=== PATIENT | female | born 1975 | race Caucasian/White ===

== ENCOUNTER 2022-08-14 19:21 | Day surgery (SDC) | payer MEDICARE, BC, SELFPAY ==
[2022-08-14 19:27] VITALS: BP 109/72; PULSE 76; RESP 16; TEMP 36.5; O2SAT 99; BMI 19.2
--- NOTE | 2022-08-14 19:48 | CRLHL7_ITS ---
For Patients: As a result of the Century Cures Act, medical imaging exams and procedure reports are released immediately into your electronic medical record. You may view this report before your referring provider. If you have questions, please contact your health care provider. INDICATION: Right lower abdomen pain, vomiting for 1 week. History of tubal ligation, , uterine ablation. TECHNIQUE: CT of the abdomen and pelvis with 52 cc Isovue 370 IV contrast. Coronal and sagittal reconstructions. COMPARISON: None. FINDINGS: The liver, spleen, pancreas, and adrenal glands are negative. The gallbladder is distended and contains sludge and multiple large stones, including a stone in the gallbladder neck. The gallbladder wall is markedly thickened/edematous with pericholecystic edema. Findings are suspicious for acute cholecystitis. No significant biliary dilation. Hepatic and portal veins are patent. Symmetric enhancement of the kidneys. No hydronephrosis or ureteral dilation. No obstructing urinary calculi identified. The bladder and uterus are normal in appearance. There are prominent periuterine vessels which can be seen in the setting of pelvic congestion syndrome. No adnexal mass. No small bowel dilation. Mild to moderate amount of stool throughout the colon. Negative appendix. Trace free fluid in the pelvis. No intraperitoneal free air. No lymphadenopathy. Aortoiliac vascular calcifications. Tiny fat containing umbilical hernia. The bones are unremarkable. The lung bases are clear. IMPRESSION: 1. Distended gallbladder with cholelithiasis and marked gallbladder wall thickening/edema. Findings are suspicious for acute cholecystitis. 2. Prominent periuterine vessels which can be seen in the setting of pelvic congestion syndrome. 3. No evidence of bowel obstruction. The appendix is negative. Please note that all CT scans at this facility use dose modulation, iterative reconstruction, and/or weight-based dosing when appropriate to reduce radiation dose to as low as reasonably achievable. Dictated by Waleska Melara MD @ 08/14/2022 9:17:03 PM (Electronically Signed)
--- NOTE | 2022-08-14 19:52 | ED.GENADULT ---
HPI - General Adult General Chief complaint: Abdominal Pain Stated complaint: Abdominal Pain Time Seen by Provider: 08/14/22 19:28 Source: patient Mode of arrival: ambulatory Limitations: no limitations History of Present Illness HPI narrative: 47-year-old female coming in today complaining of right lower abdominal pain going on for about a week. Started off of nausea and vomiting as well and then it got better for a few days and then 2 days ago started coming back in today is the worst that it has been. She feels very nauseated. The car ride was very painful for her. She has had a decreased appetite. She did eat at 2:00 p.m. today and did not vomit. She denies fevers but she feels hot and cold throughout the day and complains of chills. Nothing seems to make the pain better or worse. Pain is located in the right lower quadrant does not radiate. She states that she has had daily bowel movements. Denies any urinary symptoms including frequency, urgency or dysuria. Past medical history significant for vitamin-D and vitamin B12 deficiencies, sneddon disease, tobacco use disorder. Patient does smoke half pack cigarettes per day. Denies alcohol or other drug use. Past surgical history includes a uterine ablation, tubal ligation, x1 and tympanostomy tubes x2. Related Data Home Medications Medication Instructions Recorded Confirmed Vitamin D3 08/14/22 Allergies Allergy/AdvReac Type Severity Reaction Status Date / Time bees Allergy Severe Uncoded 08/14/22 19:56 Review of Systems Status of ROS: Reports: 10 or more systems reviewed and unremarkable except as noted in History and below [facility] Social History Smoking Status: Current every day smoker What tobacco products do you use: cigarettes Smoking packs per day: 0.5 Smoking cigarettes per day: 10.0 How often do you have a drink containing alcohol: never AUDIT-C Alcohol total score: 0 Non-prescribed substance use: denies use service: No Exam Narrative: Exam Narrative: Well-nourished well-developed patient in no acute distress. Alert and oriented. Answers questions appropriately. Mood and affect are appropriate. Thoughts are goal oriented and rational. No tangential or magical thinking noted. Patient speaks in full sentences without needing to catch her breath. Smells of cigarette smoke. HEENT: Normocephalic atraumatic. Pupils are equally round reactive to light. Extraocular muscles are intact. Conjunctivae are moist without any icterus noted. Moist mucous membranes. Posterior pharynx is normal. Neck is soft without any lymphadenopathy or thyromegaly. No masses are appreciated. Cardiovascular: Heart is regular rate and rhythm S1 and S2 are present without any murmurs. Lungs: Clear to auscultation bilaterally no wheezes rhonchi or rales are appreciated. Patient takes deep breaths without any discomfort. Abdomen: Soft and nondistended with normal bowel sounds. She does have right lower quadrant pain right at McBurney's point. She does have rebound tenderness. She also has a positive Sánchez's sign. Extremities: Bilateral lower extremities are without edema. Normal DP and PT pulses. Skin: Well perfused without any obvious rashes. Const: Vital Signs, click to edit/add: Vital Signs - 24 hr 08/14/22 19:27 Temperature 97.7 F Pulse Rate [Right Pulse Oximeter] 76 Respiratory Rate 16 Blood Pressure [Ri ght Upper Arm] 109/72 Pulse Oximetry 99 Oxygen Delivery Me thod Room Air Course Course Hospital Course: Differential diagnosis at this time includes appendicitis, colitis, abdominal wall pain, constipation, cholelithiasis or cholecystitis, ovarian cyst, ovarian torsion. IV was established and labs were drawn. She does not have an elevated white cell count, LFTs are normal. CRP is elevated. Abdominal CT showing gallbladder wall thickening with cholelithiasis, suspicious for cholecystitis. I did consult with Dr. Cruz, surgeon on-call, who recommends admission, IV antibiotics and cholecystectomy in the morning. Vital Signs Vital signs: Initial Vital Signs Temperature 97.7 F 08/14/22 19:27 Temperature Source Temporal Artery Scan 08/14/22 19:27 Pulse Rate 76 08/14/22 19:27 Pulse Rhythm Regular 08/14/22 19:27 Respiratory Rate 16 08/14/22 19:27 Blood Pressure 109/72 08/14/22 19:27 Blood Pressure Mean 84 08/14/22 19:27 Blood Pressure Position Sitting 08/14/22 19:27 Pulse Oximetry 99 08/14/22 19:27 Oxygen Delivery Method Room Air 08/14/22 19:27 Vital Signs Temperature 97.7 F 08/14/22 19:27 Pulse Rate 76 08/14/22 19:27 Respiratory Rate 16 08/14/22 19:27 Blood Pressure 109/72 08/14/22 19:27 Pulse Oximetry 99 08/14/22 19:27 Oxygen Delivery Method Room Air 08/14/22 19:27 Temperature 97.7 F 08/14/22 19:27 Pulse Rate 76 08/14/22 19:27 Respiratory Rate 16 08/14/22 19:27 Blood Pressure 109/72 08/14/22 19:27 Pulse Oximetry 99 08/14/22 19:27 Oxygen Delivery Method Room Air 08/14/22 19:27 Medical Decision Making MDM Narrative Medical decision making narrative: 47-year-old female with cholecystitis. Plan per above. Lab Data Lab results reviewed: Yes I reviewed the patient's lab results Labs: Lab Results 08/14/22 Range/Units 20:02 WBC 8.37 (4.50-11.00) K/uL RBC 3.69 L (4.00-5.20) m/uL Hgb 12.2 (12.0-16.0) gm/dL Hct 35.6 (33.0-51.0) % MCV 97 (80-100) fL MCH 33 (26-34) pg MCHC 34 (32-36) gm/dL RDW Coeff of David 13.4 (11.5-15.5) % Plt Count 227 (140-440) K/uL Neut % (Auto) 65.5 (42.0-72.0) % Lymph % (Auto) 25.9 (20-44) % Gilliam % (Auto) 5.9 (0.0-11.0) % Eos % (Auto) 2.4 (0.0-7.0) % Baso % (Auto) 0.2 (0.0-3.0) % Neut # (Auto) 5.48 (1.7-7.0) K/uL Lymph # (Auto) 2.17 (0.90-2.90) K/uL Gilliam # (Auto) 0.50 (0.00-0.90) K/UL Eos # (Auto) 0.20 (0.00-0.50) K/uL Baso # (Auto) 0.02 (0.00-0.30) K/uL Sodium 138 (135-149) mmol/L Potassium 3.5 L (3.6-5.1) mmol/L Chloride 102 (96-114) mmol/L Carbon Dioxide 28 (20-32) mmol/L BUN 8 (5-24) mg/dL Creatinine 0.7 (0.5-1.5) mg/dL Estimated Creat Clear 74.70 Estimated GFR 107 ml/min Glucose 86 (60-115) mg/dL Lactate 0.9 (0.5-1.9) mmol/L Calcium 9.2 (8.4-10.6) mg/dL Total Bilirubin 0.3 (0.1-1.5) mg/dL Direct Bilirubin 0.0 (0.0-0.5) mg/dL AST 16 (12-35) U/L ALT 12 (4-35) U/L Alkaline Phosphatase 48 (40-150) U/L C-Reactive Protein 3.6 H (0.5-1.0) mg/dL Total Protein 6.6 (6.0-8.3) g/dL Albumin 4.0 (3.3-5.0) g/dL Lipase 56 (23-300) U/L Urine Color Yellow (Yellow) Urine Appearance Clear (Clear) Urine pH 7.0 (5.0-8.5) Ur Specific [place] 1.010 (1.000-1.030) Urine Protein Negative (Negative) Urine Glucose (UA) Negative (Negative) Urine Ketones Negative (Negative) Urine Blood Trace-intact A (Negative) Urine Nitrite Negative (Negative) Urine Bilirubin Negative (Negative) Urine Urobilinogen 0.2 (0.2-1.0) Ur Leukocyte Esterase Negative (Negative) Urine RBC 2-5 A (0-2) Urine WBC 0-2 (0-5) Ur Squamous Epith Cells Many A (None-Few) Urine Bacteria None (None) Imaging Data CT scan - abdomen: Attestation: I have reviewed the pertinent imaging results. Radiologist's impression: CT of the abdomen and pelvis with 52 cc Isovue 370 IV contrast. Coronal and sagittal reconstructions. COMPARISON: None. FINDINGS: The liver, spleen, pancreas, and adrenal glands are negative. The gallbladder is distended and contains sludge and multiple large stones, including a stone in the gallbladder neck. The gallbladder wall is markedly thickened/edematous with pericholecystic edema. Findings are suspicious for acute cholecystitis. No significant biliary dilation. Hepatic and portal veins are patent. Symmetric enhancement of the kidneys. No hydronephrosis or ureteral dilation. No obstructing urinary calculi identified. The bladder and uterus are normal in appearance. There are prominent periuterine vessels which can be seen in the setting of pelvic congestion syndrome. No adnexal mass. No small bowel dilation. Mild to moderate amount of stool throughout the colon. Negative appendix. Trace free fluid in the pelvis. No intraperitoneal free air. No lymphadenopathy. Aortoiliac vascular calcifications. Tiny fat containing umbilical hernia. The bones are unremarkable. The lung bases are clear. IMPRESSION: 1. Distended gallbladder with cholelithiasis and marked gallbladder wall thickening/edema. Findings are suspicious for acute cholecystitis. 2. Prominent periuterine vessels which can be seen in the setting of pelvic congestion syndrome. 3. No evidence of bowel obstruction. The appendix is negative. Discharge Plan Discharge Clinical Impression: Acute cholecystitis, Cholelithiasis Patient Disposition: Admitted As Inpatient Condition: Stable
[2022-08-14 20:09] LABS: Lactate* 0.9 mmol/L (0.5-1.9)
[2022-08-14 20:12] LABS: Basophils Absolute Auto 0.02 K/uL (0.00-0.30); Basophils Percent Auto 0.2 % (0.0-3.0); Eosinophils Percent Auto 2.4 % (0.0-7.0); Hematocrit 35.6 % (33.0-51.0); Hemoglobin* 12.2 gm/dL (12.0-16.0); Immature Granulocytes Abs Auto 0.01 K/uL (0.00-0.30); Immature Granulocytes Pct Auto 0.1 %; Lymphocytes Absolute Auto 2.17 K/uL (0.90-2.90); Lymphocytes Percent Auto 25.9 % (20-44); Mean Corpuscular HGB Conc 34 gm/dL (32-36); Mean Corpuscular Hemoglobin 33 pg (26-34); Mean Corpuscular Volume 97 fL (80-100); Monocytes Percent Auto 5.9 % (0.0-11.0); Neutrophils Absolute Auto 5.48 K/uL (1.7-7.0); Neutrophils Percent Auto 65.5 % (42.0-72.0); Platelet Count* 227 K/uL (140-440); RDW Coefficient of Variation % 13.4 % (11.5-15.5); Red Blood Count 3.69 m/uL (4.00-5.20); White Blood Count* 8.37 K/uL (4.50-11.00)
[2022-08-14 20:15] LABS: Appearance Urine Clear (Clear); Bilirubin Urine Negative (Negative); Blood Urine Trace-intact (Negative); Color Urine Yellow (Yellow); Glucose Urine Negative (Negative); Ketones Urine Negative (Negative); Leukocyte Esterase Urine Negative (Negative); Nitrite Urine Negative (Negative); Protein Urine Negative (Negative); Urobilinogen Urine 0.2 (0.2-1.0)
[2022-08-14 20:20] LABS: Slide Review Reflex No
[2022-08-14 20:27] LABS: Chloride* 102 mmol/L (96-114); Sodium* 138 mmol/L (135-149)
[2022-08-14 20:28] LABS: Potassium* 3.5 mmol/L (3.6-5.1)
[2022-08-14 20:30] LABS: Carbon Dioxide* 28 mmol/L (20-32); Creatinine* 0.7 mg/dL (0.5-1.5); Estimated Glomerular Filt Rate 107 ml/min
[2022-08-14 20:31] LABS: Alanine Aminotransferase* 12 U/L (4-35); Alkaline Phosphatase* 48 U/L (40-150); Aspartate Amino Transferase* 16 U/L (12-35); Bilirubin Total* 0.3 mg/dL (0.1-1.5); Blood Urea Nitrogen* 8 mg/dL (5-24); Calcium* 9.2 mg/dL (8.4-10.6); Glucose* 86 mg/dL (60-115); Lipase* 56 U/L (23-300); Total Protein* 6.6 g/dL (6.0-8.3)
[2022-08-14 20:34] LABS: C Reactive Protein* 3.6 mg/dL (0.5-1.0); Squamous Epithelial Cell Urine Many (None-Few); WBC Urine 0-2 (0-5)
[2022-08-14] MEDS: PIPERACILLIN/TAZOBACTAM 3.375 GM in 0.9 % SODIUM CHLORIDE Mini-bag 100 ML IVPB (21:48)
--- NOTE | 2022-08-14 21:55 | P.IMHP_ITS ---
Hospitalist- H&P: HPI History of Present Illness Date Seen: 08/14/22 Chief complaint: Abdominal Pain Narrative: Adrianne Mendez is a 47 year old female who prsented to the ED this evening for 5-7 days of R sided abdominal pain and decreased appetite. Associated symptoms include vomiting on day 1 of symptoms (thought this was food poisoning after eating [employer]), no further vomiting or diarrhea. + nausea, intermittent subjective fevers and chills. Symptoms seem worse after eating. ER Course and Findings: - potassium 3.5, rest of labs wnl - reassuring VS - acute cholecystitis on CT - General Surgery consulted: recommend admission, IV Zosyn, plan for morning cholecystectomy Patient is active without chest pain or dyspnea. METs >4. Has had previous surgery without anesthetic or surgical complication. Patient's medical history updated below; PCP is Dr. Vimal Parr in [place]. Only Rx is Vitamin D supplementation. She also follows with Rheumatology at [facility]. Review of Systems Status of ROS: Reports: 10 or more systems reviewed and unremarkable except as noted in History and below [facility] Medical History (Updated 08/14/22 @ 23:54 by Allison Palmer MD) Raynaud disease ?I73.00 - Raynaud's syndrome without gangrene (ICD-10) Sneddon syndrome ?I77.89 - Other specified disorders of arteries and arterioles (ICD-10) Surgical History (Updated 08/14/22 @ 22:04 by Allison Palmer MD) H/O tubal ligation ?Z98.51 - Tubal ligation status (ICD-10) Previous section ?Z98.891 - History of uterine scar from previous surgery (ICD-10) Social History (Updated 08/14/22 @ 23:52 by Allison Palmer MD) Narrative: Lives with partner in [place], spends part of her winter in [place]. 3 daughters (Nahed would be MDM if needed). Smokes 1/2ppd, no ETOH. Full Code. Smoking Status: Current every day smoker What tobacco products do you use: cigarettes Smoking packs per day: 0.5 Smoking cigarettes per day: 10.0 How often do you have a drink containing alcohol: never AUDIT-C Alcohol total score: 0 Non-prescribed substance use: denies use service: No Meds Home Medications and Allergies Home Medications Medication Instructions Recorded Confirmed Type Vitamin D3 08/14/22 History Home Medication Comments: No Rx medications Allergies Allergy/AdvReac Type Severity Reaction Status Date / Time bees Allergy Severe Uncoded 08/14/22 19:56 Exam Narrative: Exam Narrative: GEN: Alert and oriented, nontoxic HEENT: EOMIs bilaterally, no scleral icterus CV: RRR, No concerning murmurs, rubs, or gallops R: LCTA bilaterally without concerning wheezing, rales, or rhonchi Ab: + ttp RUQ and RLQ, mild guarding, no rebound Ext: wwp, no concerning edema Skin: No concerning skin lesions or rashes on exposed skin Neuro: Nonfocal Psych: Appropriate Const: Vital Signs, click to edit/add: Vital Signs - 24 hr 08/14/22 19:27 Temperature 97.7 F Pulse Rate [Right Pulse Oximeter] 76 Respiratory Rate 16 Blood Pressure [Ri ght Upper Arm] 109/72 Pulse Oximetry 99 Oxygen Delivery Me thod Room Air Hospitalist - H&P: Result Labs Labs: Short CBC 08/14/22 Range/Units 20:02 WBC 8.37 (4.50-11.00) K/uL Hgb 12.2 (12.0-16.0) gm/dL Hct 35.6 (33.0-51.0) % Plt Count 227 (140-440) K/uL BMP 08/14/22 20:02 Sodium 138 Potassium 3.5 L Chloride 102 Carbon Dioxide 28 BUN 8 Creatinine 0.7 Glucose 86 Calcium 9.2 Liver Function 08/14/22 Range/Units 20:02 Total Bilirubin 0.3 (0.1-1.5) mg/dL Direct Bilirubin 0.0 (0.0-0.5) mg/dL AST 16 (12-35) U/L ALT 12 (4-35) U/L Alkaline Phosphatase 48 (40-150) U/L Albumin 4.0 (3.3-5.0) g/dL Urine 08/14/22 Range/Units 20:02 Urine Color Yellow (Yellow) Urine Appearance Clear (Clear) Urine pH 7.0 (5.0-8.5) Ur Specific [place] 1.010 (1.000-1.030) Urine Protein Negative (Negative) Urine Glucose (UA) Negative (Negative) Assessment and Plan Assessment and plan (1) Acute cholecystitis: Problem comment: - Dr. Cruz of General Surgery aware Status: Acute Plan - NPO - Zosyn - plan for cholecystectomy in the morning
[2022-08-14 22:45] VITALS: BP 111/45; PULSE 77; RESP 16; TEMP 36.9; O2SAT 97
[2022-08-15] VITALS (25 sets, daily range): BP systolic 95–146; BP diastolic 43–90; PULSE 57–91; RESP 9–22; TEMP 36.2–36.7; O2SAT 94–100
[2022-08-15] MEDS: PIPERACILLIN/TAZOBACTAM 3.375 GM in 0.9 % SODIUM CHLORIDE Mini-bag 100 ML IVPB ×2 (03:49→09:49)
[2022-08-15] MEDS: SODIUM CHLORIDE 0.9 % (FLUSH) 10 ML SYRINGE 5 ML IVF (03:51)
[2022-08-15] MEDS: 0.9 % SODIUM CHLORIDE 250 ml IV (04:35)
[2022-08-15] MEDS: LACTATED RINGERS 1000 ML 1,000 ML 125 ML IV ×3 (04:35→23:45)
--- NOTE | 2022-08-15 11:01 | P.GSCN_ITS ---
History of Present Illness Consult details Date Seen: 08/15/22 Consult date: 08/15/22 Narrative: The patient is a 47-year-old female who presented to the emergency department last evening with severe right-sided abdominal pain. She states that she really has had abdominal pain for months which has been stretching across her upper abdomen. She thought that it was related to diverticulitis or eating red sauce however last week she developed severe pain. She thought that she had food poisoning and had a very large bilious emesis. She then had several days of nausea and yesterday developed severe right-sided pain. She has been able to eat and drink however she states eating and drinking makes her pain significantly worse. She states that she has had fevers. She has been having bowel movements. She had 1 yesterday which was loose. [facility] Medical History (Updated 08/14/22 @ 23:54 by Allison Palmer MD) Raynaud disease ?I73.00 - Raynaud's syndrome without gangrene (ICD-10) Sneddon syndrome ?I77.89 - Other specified disorders of arteries and arterioles (ICD-10) Surgical History (Updated 08/14/22 @ 22:04 by Allison Palmer MD) H/O tubal ligation ?Z98.51 - Tubal ligation status (ICD-10) Previous section ?Z98.891 - History of uterine scar from previous surgery (ICD-10) Social History (Updated 08/14/22 @ 23:52 by Allison Palmer MD) Narrative: Lives with partner in [facility], spends part of her winter in [place]. 3 daughters (Nahed would be MDM if needed). Smokes 1/2ppd, no ETOH. Full Code. Smoking Status: Current every day smoker What tobacco products do you use: radha osorioettes Smoking packs per day: 0.5 Smoking cigarettes per day: 10.0 How often do you have a drink containing alcohol: never AUDIT-C Alcohol total score: 0 Non-prescribed substance use: denies use service: No Meds Home Medications and Allergies Home Medications Medication Instructions Recorded Confirmed Type cyanocobalamin (vitamin B-12) 1,000 mcg PO DAILY 08/14/22 08/14/22 History 1,000 mcg tablet,extended release ergocalciferol (vitamin D2) 1,250 1,250 mcg PO .twice/week 08/14/22 08/14/22 History mcg (50,000 unit) capsule (Vitamin D2) Allergies Allergy/AdvReac Type Severity Reaction Status Date / Time bees Allergy Severe Uncoded 08/14/22 19:56 Exam Narrative: Exam Narrative: General appearance: Alert, cooperative, and in no distress Eyes: PERRLA, eye lids clear, and sclera white HENT Head: Normocephalic Ears: External ears normal Pulmonary: Breathing nonlabored on room air Cardiovascular Heart: Regular rate Extremities: warm and well perfused Gastrointestinal Abdominal: : Soft. Nondistended. She is tender on the right side and the right upper quadrant. Extremities: Upper: Both upper extremities have normal joint range of motion and intact strength. Lower: Both lower extremities have normal joint range of motion and intact strength. Skin: Normal skin color, texture, and turgor. Neurologic: No focal deficits Psychiatric: Alert, oriented, cooperative, normal affect. Const: Vital Signs, click to edit/add: Vital Signs - 24 hr 08/14/22 19:27 08/14/22 22:45 08/15/22 00:25 Temperature 97.7 F 98.4 F 98.1 F Pulse Rate 77 70 Pulse Rate [Pulse Oximeter] Pulse Rate [Right Pulse Oximeter] 76 Respiratory Rate 16 16 22 Blood Pressure 111/45 L 95/52 L Blood Pressure [Le ft Arm] Blood Pressure [Ri ght Upper Arm] 109/72 Pulse Oximetry 99 97 97 Oxygen Delivery Me thod Room Air Room Air Room Air 08/15/22 00:30 08/15/22 03:00 Temperature 98.1 F 98 F Pulse Rate 61 Pulse Rate [Pulse Oximeter] 70 Pulse Rate [Right Pulse Oximeter] Respiratory Rate 22 18 Blood Pressure 102/53 L Blood Pressure [Le ft Arm] 95/52 L Blood Pressure [Ri ght Upper Arm] Pulse Oximetry 97 98 Oxygen Delivery Me thod Room Air Room Air Results Labs Labs: Abnormal lab results 08/14/22 Range/Units 20:02 RBC 3.69 L (4.00-5.20) m/uL Potassium 3.5 L (3.6-5.1) mmol/L C-Reactive Protein 3.6 H (0.5-1.0) mg/dL Urine Blood Trace-intact A (Negative) Urine RBC 2-5 A (0-2) Ur Squamous Epith Cells Many A (None-Few) Diabetes panel 08/14/22 Range/Units 20:02 Sodium 138 (135-149) mmol/L Potassium 3.5 L (3.6-5.1) mmol/L Chloride 102 (96-114) mmol/L Carbon Dioxide 28 (20-32) mmol/L BUN 8 (5-24) mg/dL Creatinine 0.7 (0.5-1.5) mg/dL Glucose 86 (60-115) mg/dL Calcium 9.2 (8.4-10.6) mg/dL AST 16 (12-35) U/L ALT 12 (4-35) U/L Alkaline Phosphatase 48 (40-150) U/L Total Protein 6.6 (6.0-8.3) g/dL Albumin 4.0 (3.3-5.0) g/dL Calcium panel 08/14/22 Range/Units 20:02 Calcium 9.2 (8.4-10.6) mg/dL Albumin 4.0 (3.3-5.0) g/dL Pituitary panel 08/14/22 Range/Units 20:02 Sodium 138 (135-149) mmol/L Potassium 3.5 L (3.6-5.1) mmol/L Chloride 102 (96-114) mmol/L Carbon Dioxide 28 (20-32) mmol/L BUN 8 (5-24) mg/dL Creatinine 0.7 (0.5-1.5) mg/dL Glucose 86 (60-115) mg/dL Calcium 9.2 (8.4-10.6) mg/dL Adrenal panel 08/14/22 Range/Units 20:02 Sodium 138 (135-149) mmol/L Potassium 3.5 L (3.6-5.1) mmol/L Chloride 102 (96-114) mmol/L Carbon Dioxide 28 (20-32) mmol/L BUN 8 (5-24) mg/dL Creatinine 0.7 (0.5-1.5) mg/dL Glucose 86 (60-115) mg/dL Calcium 9.2 (8.4-10.6) mg/dL Total Bilirubin 0.3 (0.1-1.5) mg/dL AST 16 (12-35) U/L ALT 12 (4-35) U/L Alkaline Phosphatase 48 (40-150) U/L Total Protein 6.6 (6.0-8.3) g/dL Albumin 4.0 (3.3-5.0) g/dL All other labs normal. Imaging Abdomen CT scan report/results: report reviewed and image reviewed Additional studies: INDICATION: Right lower abdomen pain, vomiting for 1 week. History of tubal ligation, , uterine ablation. TECHNIQUE: CT of the abdomen and pelvis with 52 cc Isovue 370 IV contrast. Coronal and sagittal reconstructions. COMPARISON: None. FINDINGS: The liver, spleen, pancreas, and adrenal glands are negative. The gallbladder is distended and contains sludge and multiple large stones, including a stone in the gallbladder neck. The gallbladder wall is markedly thickened/edematous with pericholecystic edema. Findings are suspicious for acute cholecystitis. No significant biliary dilation. Hepatic and portal veins are patent. Symmetric enhancement of the kidneys. No hydronephrosis or ureteral dilation. No obstructing urinary calculi identified. The bladder and uterus are normal in appearance. There are prominent periuterine vessels which can be seen in the setting of pelvic congestion syndrome. No adnexal mass. No small bowel dilation. Mild to moderate amount of stool throughout the colon. Negative appendix. Trace free fluid in the pelvis. No intraperitoneal free air. No lymphadenopathy. Aortoiliac vascular calcifications. Tiny fat containing umbilical hernia. The bones are unremarkable. The lung bases are clear. IMPRESSION: 1. Distended gallbladder with cholelithiasis and marked gallbladder wall thickening/edema. Findings are suspicious for acute cholecystitis. 2. Prominent periuterine vessels which can be seen in the setting of pelvic congestion syndrome. 3. No evidence of bowel obstruction. The appendix is negative. Please note that all CT scans at this facility use dose modulation, iterative reconstruction, and/or weight-based dosing when appropriate to reduce radiation dose to as low as reasonably achievable. Assessment and Plan Assessment and plan (1) Acute cholecystitis: Problem comment: - Dr. Cruz of General Surgery aware Status: Acute (2) Cholelithiasis: Status: Acute Plan The patient is a 47-year-old female with acute cholecystitis. I explained that the treatment for this is laparoscopic cholecystectomy. We discussed the procedure as well as risks and benefits of surgery which include bleeding, infection, bile leak, conversion to open or injury to other structures, specifically the common bile duct. We also discussed recovery.
--- NOTE | 2022-08-15 13:43 | W.ANESCHARGE ---
Anesthesia Charges Start Date/Time Anesthesia Start Date: 08/15/22 Anesthesia Start Time: 10:53 Stop Date/Time Anesthesia Stop Date: 08/15/22 Anesthesia Stop Time: 15:22
[2022-08-15] MEDS: BUPIVACAINE 0.25% 30 ML INJECTION (14:41)
--- NOTE | 2022-08-15 14:59 | PM.GSPRC ---
Operative Note Date of procedure: 08/15/22 Pre-op diagnosis: Acute cholecystitis Post-op diagnosis: Same Type of Procedure: Laparoscopic cholecystectomy Indications: The patient is a 47-year-old female who presented to the emergency department with 1 week of severe abdominal pain. Workup revealed normal liver tests however she had a CT scan with a markedly distended and edematous gallbladder full of stones. I recommended cholecystectomy and she agreed to proceed. Procedure Description: After discussing the risks and benefits of the procedure, the patient signed informed consent.? The operative site was marked and the patient was brought to the operating room and placed on the operating table in supine position.? Care was taken to pad the patient's pressure points.?? The patient was then intubated by anesthesia.?? The operative site was then prepped and draped in the usual sterile fashion.? A time-out was then performed. Entrance to the abdomen was attempted via a 5 mm Visiport in the left upper quadrant, however, on the 1st attempt, the 2nd muscle layer did not appear normal and the port was removed. I attempted a 2nd time and it appeared as though I was in the abdomen appropriately. I insufflated, however the port pulled back. Rather than try again, I elected to enter the abdomen via open Sanchez technique. I made an incision below the umbilicus an using a scissor incised the fascia. The peritoneal cavity was entered. A 10 mm port was placed. The abdomen was then insufflated. I surveyed the right upper quadrant. There was 1 fascial opening were I had entered previously. There was a less than 1 cm laceration on the anterior aspect of the left lobe of the liver this was not bleeding. This did not go through and through. There was no injury to the stomach underneath or inferior to the liver. There was minimal blood in the quadrant however I noted a very small amount of blood staining on the omentum below the stomach. I attempted to lift this up and look underneath at the colon, however the omentum was tethered to the anterior abdominal wall in the left mid abdomen. To adequately exam the colon underneath of the omentum, I used LigaSure to take down the omental attachments to the anterior abdominal wall. Once a small section had been freed, I was able to see the colon which appeared to be free of any injury. The patient was then placed into reverse Trendelenburg with the right-side up and 2 working ports along the right costal margin were placed under direct vision. The gallbladder was extremely large and edematous. Of the fundus was grasped and retracted cephalad. The infundibulum was grasped. A combination of hook cautery and blunt dissection was used to begin dissection of the cystic duct and artery. The patient's gallbladder was very inflamed and bled easily throughout the dissection. Because of the inflammation, the tissue planes were difficult to dissect. I was able to identify the artery on the gallbladder itself, however had difficulty dissecting it in the area of the cystic duct below the infundibulum as it appeared as though there was 1 or 2 large lymph nodes which were densely adherent to the gallbladder and bled easily with manipulation, making dissection below this difficult. Using a combination of a [place] dissector, suction biodiesel process control technician and hook cautery, I was able to dissect out anteriorly what appeared to be cystic duct and likely also the artery, however dissection behind them difficult again because the tissue was so inflamed. I decided to dissect the gallbladder off the cystic plate somewhat higher up and though this was also difficult because of the inflammation, I was able to safely dissect across the gallbladder on the gallbladder bed and take this dissection down carefully to lares the duct and artery and then was able to safely dissect both structures out. There were no other intervening structures. Once the critical view was achieved, the cystic duct and artery were each clipped with 2 clips proximally and 1 clip distally and transected with the scissors. The gallbladder was then taken off of the liver bed and removed from the abdomen using an Endo-Catch bag. The port site fascia had to be widened to permit the passage of the very enlarged gallbladder. The gallbladder bed was surveyed for hemostasis which appeared adequate. The small liver laceration was again examined. This was completely hemostatic. The ports were removed and the abdomen desufflated. The umbilical port fascia was closed with running 0 Vicryl. The remaining ports were then removed and the abdomen desufflated. The skin was closed with absorbable subcuticular suture. Instrument sponge and needle counts were correct at the end of the case. The patient was then woken and transferred to the PACU in stable condition. The patient tolerated the procedure well. Findings: 1. Markedly enlarged and inflamed gallbladder with cholelithiasis 2. Small liver laceration created upon entrance to the abdomen. Hemostatic. Anesthesia: GETA Surgeon: Hayley Cruz MD Estimated blood loss (mL): 150 Specimen: Gallbladder Condition: stable Disposition: PACU
--- NOTE | 2022-08-15 16:10 | PC.NURSE ---
Patient refused further medication once in PACU. Print out of VS passed off to acoustic engineer.
[2022-08-15] MEDS: HYDROCODONE-ACETAMIN 5-325 MG 1 TAB PO (17:32)
--- NOTE | 2022-08-15 20:19 | PC.NURSE ---
Nursing Care Hours: [id number] Pt this shift educated on surgery and post op instructions prior to surgery. C/o pain 5/10 but refused any medications for it. States concern about constipation. Pt educated on constipation prevention strategies, but pt continue to decline pain meds. Preop checklist completed and pt left for OR at 1050. Returned from PACU at 1605, sedated and lethargic. VSS except respiratory rate was 9-14. Pt would fall asleep and quickly wake feeling disoriented and stating something is wrong and I can't breathe and I don't like this feeling. LS clear, spO2 stable, color WNL, no SOB or labored breathing. HOB elevated to 45 degrees. Encouraged to take small ice chips. Pt pain 5/10 from PACU but continues to refuse medications. After getting up to void with 2 assist and yelling out in pain, scientific writer discussed constipation prevention and importance in getting pain under control in order to start getting up and moving. Pt agreed, see eMAR. Pt becoming more alert and staying awake longer toward end of shift. Pt family in room at bedside.
[2022-08-15] MEDS: ACETAMINOPHEN 325 MG TABLET 650 MG PO (22:34)
[2022-08-16 02:00] VITALS: BP 121/62; PULSE 68; RESP 16; TEMP 36.7; O2SAT 99
--- NOTE | 2022-08-16 06:55 | PC.NURSE ---
Pt alert and oriented x3. Afebrile. Pt reports 8/10 pain in abdomen, pain managed with PRN medications and applying ice packs. Pt has 4 lap sites that are open to air and have a small amount of dried blood on them. Pt?denies chest pain, and N/V.?Pt is up Ind/SBA with IV pole. Pt is tolerating a clear liquid?diet. It was noted that pt had some difficulty swallowing water and pills,?now giving pills with applesauce/pudding and a consult was ordered for speech therapist.?Pt was up to the bathroom x3 throughout the night. Pt slept intermittently throughout most of night.??
[2022-08-16 07:00] VITALS: BP 124/73; PULSE 72; RESP 20; O2SAT 100
[2022-08-16] MEDS: ACETAMINOPHEN 325 MG TABLET 975 MG PO (08:13)
[2022-08-16] MEDS: CYANOCOBALAMIN (VITAMIN B-12) 500 MCG TABLET 1000 MCG PO (08:14)
--- NOTE | 2022-08-16 09:47 | PM.GSPN ---
Subjective Subjective Date Seen: 08/16/22 Interval history: Bruise has felt sleepy overnight. She has some pain in her epigastric area. She has had a small amount of nausea. She is drinking liquid protein supplements today. Exam Narrative: Exam Narrative: General: No acute distress CV: Regular rate and rhythm Respiratory: Clear to auscultation bilaterally Abdomen: Mildly distended. Appropriately tender to palpation for the postoperative. She has ecchymosis below her umbilical incision. Const: Vital Signs, click to edit/add: Vital Signs - 24 hr 08/15/22 10:00 08/15/22 10:00 08/15/22 11:00 Temperature 97.8 F 98 F Pulse Rate Pulse Rate [Pulse Oximeter] 65 67 Respiratory Rate 16 16 18 Blood Pressure Blood Pressure [Le ft Arm] 130/72 131/69 Pulse Oximetry 99 98 Oxygen Delivery Me thod Room Air Room Air 08/15/22 15:20 08/15/22 15:25 08/15/22 15:30 Temperature 97.2 F L Pulse Rate 91 91 91 Pulse Rate [Pulse Oximeter] Respiratory Rate 16 12 12 Blood Pressure 138/72 144/79 H 146/90 H Blood Pressure [Le ft Arm] Pulse Oximetry 98 96 96 Oxygen Delivery Wv thod Room Air 08/15/22 15:35 08/15/22 15:40 08/15/22 15:45 Temperature Pulse Rate 70 70 68 Pulse Rate [Pulse Oximeter] Respiratory Rate 12 12 16 Blood Pressure 133/76 133/73 115/73 Blood Pressure [Le ft Arm] Pulse Oximetry 95 94 96 Oxygen Delivery Wv thod Room Air 08/15/22 15:50 08/15/22 15:55 08/15/22 16:05 Temperature 97.1 F L Pulse Rate 73 82 67 Pulse Rate [Pulse Oximeter] Respiratory Rate 12 16 10 L Blood Pressure 120/72 132/77 Blood Pressure [Le ft Arm] 122/57 L Pulse Oximetry 95 97 Oxygen Delivery Me thod Room Air Room Air Room Air 08/15/22 16:15 08/15/22 16:30 08/15/22 16:45 Temperature Pulse Rate Pulse Rate [Pulse Oximeter] 67 64 68 Respiratory Rate 9 L 9 L 9 L Blood Pressure Blood Pressure [Le ft Arm] 110/63 114/59 L 125/68 Pulse Oximetry 96 96 96 Oxygen Delivery Me thod Room Air Room Air Room Air 08/15/22 17:00 08/15/22 17:30 08/15/22 18:00 Temperature Pulse Rate Pulse Rate [Pulse Oximeter] 70 72 Respiratory Rate 14 14 Blood Pressure Blood Pressure [Le ft Arm] 99/55 L 122/65 117/71 Pulse Oximetry 100 100 Oxygen Delivery Me thod Room Air Room Air 08/15/22 19:00 08/15/22 19:00 08/15/22 20:00 Temperature 97.5 F L 97.5 F L 97.6 F Pulse Rate Pulse Rate [Pulse Oximeter] 67 67 67 Respiratory Rate 16 16 16 Blood Pressure Blood Pressure [Le ft Arm] 136/83 136/83 133/63 Pulse Oximetry 100 100 100 Oxygen Delivery Me thod Room Air Room Air Room Air 08/15/22 21:00 08/15/22 22:00 08/16/22 02:00 Temperature 97.5 F L 97.8 F 98.1 F Pulse Rate Pulse Rate [Pulse Oximeter] 62 65 68 Respiratory Rate 14 14 16 Blood Pressure Blood Pressure [Le ft Arm] 137/64 130/72 121/62 Pulse Oximetry 99 99 99 Oxygen Delivery Me thod Room Air Room Air Room Air Progress Note: A&P Assessment and plan (1) Cholelithiasis: Status: Acute (2) Acute cholecystitis: Problem details: - Dr. Cruz of General Surgery aware Status: Acute (3) S/P laparoscopic cholecystectomy: Status: Acute Plan The patient is a 47-year-old female who is postop day 1 status post laparoscopic cholecystectomy for acute cholecystitis. Vital signs are stable, and although surgery yesterday was long, she may discharge later today if her nausea resolves and as long as her pain is controlled on oral medication. I discussed this with the patient. We will get her up today and try to advance her diet and if she is feeling up to it she can discharge home versus discharge home tomorrow.
[2022-08-16 11:00] VITALS: BP 105/60; PULSE 64; RESP 18; O2SAT 99
[2022-08-16] MEDS: HYDROCODONE-ACETAMIN 5-325 MG 1 TAB PO (11:58)
[2022-08-16 15:00] VITALS: BP 122/65; PULSE 68
--- NOTE | 2022-08-16 16:40 | PC.NURSE ---
Nursing Care Hours: [id number] Pt this shift calm and cooperative, alert and oriented. Pt states feeling rough, rating pain 8/10 this morning, declined anything stronger than Tylenol. After pain med, brought down to 5/10. Pt walking halls x2 to promote gastric motility, pain increased to 8/10. Discussed using the [place] and pt agreed. Pain decreased to 5/10. BS active x4. Slight distention lower abdomen, area soft. Lap site at belly button has dried blood and small bruising. Light red around belly bottom and abdomen warm. Pt concerned about infection, educated on infection timeline after surgery and initial inflammatory process post surgery. Pt aslo concerned about feeling out of it and tired still. Explained the affects of anaesthesia and narcotic pain meds. Steri strips intact. Accepted Ensure clear and apple sauce, tolerated well. No nausea. VSS, afebrile. IV dc'd for discharge, home instructions went over with pt and SO. All questions and concerns answered. Wheeled out to vehicle in stable condition.
--- NOTE | 2022-08-17 13:04 | P.DS_ITS ---
DS: Providers Provider Date Seen: 08/16/22 Date of admission: 08/14/22 Primary care physician: Not a Local Provider Attending Physician on discharge: Hayley Cruz MD Date of Discharge: 08/16/22 DS: Diagnosis Discharge Diagnosis (1) S/P laparoscopic cholecystectomy: Status: Acute (2) Acute cholecystitis: Status: Acute Problem details: - Dr. Cruz of General Surgery aware DS: Summary Hospital Course Hospital Course: The patient was admitted to the hospital on 11/05/2022 with severe right-sided abdominal pain and CT findings consistent with acute cholecystitis. She underwent laparoscopic cholecystectomy on 08/15/2022. This was notable for significant inflammation. The patient remained in the hospital overnight postoperatively and by the afternoon on postop day 1 she was ambulating, tolerating a diet and had pain control with oral pain medication. She was deemed safe for discharge home. Time Spent with Patient Time attestation: Total time spent providing and/or coordinating discharge services: Exam Narrative: Exam Narrative: General: No acute distress CV: Regular rate and rhythm Respiratory: Lungs clear to auscultation bilaterally Abdomen: Umbilical incision with blood staining. There is ecchymosis below the incision. No erythema around the incisions. Abdomen is mildly distended. Const: Vital Signs, click to edit/add: Vital Signs - 24 hr 08/16/22 15:00 Pulse Rate 68 Blood Pressure 122/65 Discharge Plan Discharge Disposition: Home, Self-Care Discharging Surgeon: Hayley Cruz Follow-Up Appointment: 2 weeks Prescriptions: New hydrocodone-acetaminophen 5-325 mg Tablet 1 tab PO Q6H PRN (Reason: Pain) Qty: 20 0RF Continued cyanocobalamin (vitamin B-12) 1,000 mcg tablet extended release 1,000 mcg PO DAILY ergocalciferol (vitamin D2) [Vitamin D2] 1,250 mcg (50,000 unit) capsule 1,250 mcg PO .twice/week Activity Level: No strenuous activity Activity Detail: No lifting more than 20 lb for 3 weeks Discharge Diet: Regular Patient Instructions: Hydrocodone/Acetaminophen (By mouth), Surgical Site Infections (DC), General Anesthesia (DC), Post-Operative Instructions: Laparoscopic Cholecystectomy Additional Instructions: Wound care: Your sutures are under the skin and will dissolve over time. Leave steri strips (white bandages) over incisions until they fall off (or remove after 7 days). OK to shower tomorrow but avoid bathing, soaking or swimming for 2 weeks. Pat the incisions dry. No need to wash or scrub the area. Apply ice to the area as needed for swelling. It is also OK to use a heating pad if this provides more comfort to you. Pain control: You were prescribed a pain medication. This medication contains acetaminophen (Tylenol). If you are taking your prescribed pain pills 4 times daily, do not take additional acetaminophen. As your pain improves, you can try taking acetaminophen instead of the prescribed pain pill. It is ok to take Ibuprofen or Naproxen (per directions on packaging). This medication helps with inflammation and swelling. Take an [id number] stool softener while you are taking prescribed pain medications to help alleviate constipation. I recommend Senna and/or Colace. Take as directed on package. If you have not had a bowel movement in 3 days, try taking Miralax as directed on the package. All of these are available over the counter. Follow-up Follow up with Dr. Cruz in 2-3 weeks Please call if you are experiencing severe pain, nausea, vomiting, difficulty urinating, fever or have not had bowel movement in 4 days after surgery. Forms: Work/School Release Follow-up: Hayley Cruz MD [Staff Physician] - 09/02/22 11:15 am ([facility] with Dr. Cruz for follow-up.) Discharge Orders: Discharge Order (Routine); Ordered 08/16/22 Ordered By: Hayley Cruz
== END 2022-08-16 15:25 | disposition home or self-care (01) ==
LOC: ED 21:35 → SS 22:24 → MEDSURG 22:26
PROVIDERS: Emergency Provider Family Medicine; Visit Provider Surgery
PROC: 0FT44ZZ Resection of Gallbladder, Percutaneous Endoscopic Approach (ICD-10-PCS; CPT 47562; principal; 2022-08-15 09:50)
DX: K80.00 Calculus of gallbladder with acute cholecystitis without obstruction (principal); K91.71 Accidental puncture and laceration of a digestive system organ or structure during a digestive system procedure
CPT/HCPCS: 47562; 00790; 36415; 74177; 80048; 80076; 81001; 83605; 83690; 85025; 86140; 87086; 88304; 99284; 99285; A9270; J0330; J1100; J1170; J2250; J2405; J2543; J2704; J3010; J3490; J7050; J7120; Q9967